=== PATIENT | female | born 1985 | race African-American/Black ===

== ENCOUNTER 2016-11-26 22:24 | Emergency (ER) | payer SELFPAY ==
[~2016-11-26] VITALS: Ht 167.6 cm; Wt 69.0 kg
[2016-11-26 23:20] VITALS: BP 121/76
== END 2016-11-27 01:11 | disposition left against medical advice (07) ==
LOC: ER 22:24
DX: Z04.1 Encounter for examination and observation following transport accident (principal); M54.5 Low back pain; Z53.21 Procedure and treatment not carried out due to patient leaving prior to being seen by health care provider